=== PATIENT | female | born 1960 | race Caucasian/White ===

== ENCOUNTER → 2017-01-25 | Outpatient (REF) ==
[~2017-01-25] MED LIST: ALLOPURINOL300 MG PO; AMITRIPTYLINE H10 M1 PO; ASPIRIN 81M81 MG/TA2 PO; ASPIRIN E.C. 8181 MG PO; BACTRIM DS 8001 TAB PO; COLCRYS0.6 MG PO; DOXYCYCLINE 10100 MG PO; DUO-KAPS1 CAP PO; ESTRACE2 MG PO; FORTAMET1000 MG PO; GLUCOPHAGE1000 MG PO; GLUCOTROL10 MG PO; HCTZ; LEVAQUIN 5500 MG/TA1 PO; LOPRESSOR100 MG PO; MELATONIN5 M1 PO; NORCO 325 MG-51 TAB PO; NORCO 325 MG-7.1 TAB PO; NORVASC 5MG5 MG/TAB PO; PHENERGAN 25 TA25 MG PO; ZESTRIL40 MG PO; ZYLOPRIM 300MG300 MG PO
== END ==
LOC: ZLAB.WCH 18:02
DX: Z01.89 Encounter for other specified special examinations (principal)

== ENCOUNTER → 2018-01-23 | Outpatient (REF) | LOC: ZLAB.WCH 18:22 | DX: Z01.89 Encounter for other specified special examinations (principal) ==

== ENCOUNTER → 2018-01-24 | Outpatient (REF) | payer SELFPAY | LOC: ZLAB.STJ 08:34 → ZLAB.WCH 08:34 | DX: Z01.89 Encounter for other specified special examinations (principal) ==

== ENCOUNTER → 2018-02-14 | Outpatient (REF) | LOC: ZLAB.WCH 18:17 | DX: Z01.89 Encounter for other specified special examinations (principal) ==

== ENCOUNTER 2019-08-10 15:50 | Inpatient (IN) | payer BC ==
[~2019-08-10] VITALS: Ht 175.3 cm; Wt 96.9 kg
[2019-08-10] VITALS (337 sets, daily range): BP systolic 133–146; BP diastolic 68–81; PULSE 84–90; TEMP 98–98.5; O2SAT 80–100
[2019-08-10] MEDS ORDERED: MOBIC 7.5MG7.5 MG PO (16:18)
--- NOTE | 2019-08-10 16:30 | NUR ---
Pt arrived to room via cart with EMS staff, able to transfer over to bed independently by scooting, did get short of breath. Resting in bed, VSS. Oriented to room and place. Called Dr. Atkins and notified of arrival, will continue to monitor.
--- NOTE | 2019-08-10 18:28 | NUR ---
Dr. Atkins to see pt, resting quietly in bed, denies needs, will give bedside shift report to nightshift nurse who will resume care.
[2019-08-10 18:53] LABS: MUCOUS Present /lpf; PH 5 (5-8); SQUAMOUS EPITHELIAL 0-2 /hpf; URINE APPEARANCE Hazy; URINE BACTERIA Rare /hpf; URINE BILIRUBIN Negative (NEGATIVE); URINE BLOOD Negative (NEGATIVE); URINE COLOR Yellow; URINE GLUCOSE 1+ (NEGATIVE); URINE KETONE Trace (NEGATIVE); URINE LEUKOCYTE ESTERASE 1+ (NEGATIVE); URINE NITRATE Negative (NEGATIVE); URINE PROTEIN(semi-quant) Negative (NEGATIVE); URINE RBC 0-2 /hpf; URINE UROBILINOGEN Negative (NEGATIVE)
[2019-08-10] MEDS ORDERED: LANTUS100 U/ML SQ (19:18)
[2019-08-10 19:44] LABS: COLLECTION METHOD CLEAN CATCH
--- NOTE | 2019-08-10 20:00 | NUR ---
COMPLAINS OF FULLNESS FEELING UPPER ABDOMIN QUADRANTS, AND RIGHT FOOT PAIN, ALSO FRONTAL HEADACHE, STATES "OH THEIR FINE" WILL CONTINUE TO EVALUATE
[2019-08-11] VITALS (758 sets, daily range): BP systolic 109–154; BP diastolic 45–98; PULSE 76–94; TEMP 97.9–99.6; O2SAT 65–100
[2019-08-11 05:38] LABS: BASO # 0.1 (0.0-0.2); BASO % 0.5 % (0.0-2.0); EOS # 0.3 (0.0-0.7); EOS % 2.6 % (0-4.0); GRAN # 6.2 (1.4-6.5); GRAN % 62.2 % (42.2-75.2); HEMOGLOBIN 11.3 g/dl (12.5-16.0); LYMPH # 2.5 (1.2-3.4); LYMPH % 24.7 % (20.0-51.0); MEAN CELL VOLUME 89 fl (80.0-100.0); MEAN CORPUSCULAR HEMOGLOBIN 28 pg (27.0-31.0); MEAN CORPUSCULAR HGB CONC 32 g/dl (33.0-37.0); MEAN PLATELET VOLUME 9.7 fl (7.4-10.4); MONO % 9.6 % (1.7-9.3); PLATELET COUNT 346 K/mm3 (130-400); REDCELL DISTRIBUTION WIDTH-CV 12.6 % (11.5-14.5)
[2019-08-11 05:41] LABS: HEMATOCRIT 35.4 % (37.0-47.0)
[2019-08-11 05:44] LABS: ALBUMIN 3.5 gm/dL (3.5-5.0); BILIRUBIN,TOTAL 0.5 mg/dL (0.0-1.0); CALCIUM 8.9 mg/dL (8.4-10.2); CREATININE, serum 0.99 (0.52-1.25); TOTAL PROTEIN 6.7 gm/dL (6.4-8.2)
--- NOTE | 2019-08-11 07:30 | NUR ---
Bedside shift report received from JOCELINE Romeo. Patient is sleeping, but easily aroused. Full assessment completed. Vital signs stable. Bed in lowest position, side rails up x2, call light and personal items within reach. Patient has no complaints or concerns at this time.
--- NOTE | 2019-08-11 19:24 | NUR ---
Bedside shift report given to JOCELINE Romeo and care handed over at this time.
[2019-08-12] VITALS (24 sets, daily range): BP systolic 124–175; BP diastolic 59–89; PULSE 77–93; TEMP 98–99.1; O2SAT 68–100
[2019-08-12 05:06] LABS: BASO # 0.1 (0.0-0.2); BASO % 0.6 % (0.0-2.0); EOS # 0.2 (0.0-0.7); EOS % 2.3 % (0-4.0); GRAN # 6.1 (1.4-6.5); GRAN % 63.6 % (42.2-75.2); LYMPH # 2.1 (1.2-3.4); LYMPH % 22.1 % (20.0-51.0); MEAN CELL VOLUME 87 fl (80.0-100.0); MEAN CORPUSCULAR HEMOGLOBIN 28 pg (27.0-31.0); MEAN CORPUSCULAR HGB CONC 32 g/dl (33.0-37.0); MEAN PLATELET VOLUME 9.7 fl (7.4-10.4); MONO # 1.1 (0.1-0.6); PLATELET COUNT 326 K/mm3 (130-400); RED BLOOD COUNT 3.96 M/mm3 (4.10-5.30); REDCELL DISTRIBUTION WIDTH-CV 12.5 % (11.5-14.5)
[2019-08-12 05:10] LABS: HEMATOCRIT 34.4 % (37.0-47.0)
[2019-08-12 05:14] LABS: CALCIUM 8.8 mg/dL (8.4-10.2); CREATININE, serum 0.79 (0.52-1.25); POTASSIUM 4.3 mmol/L (3.4-5.0)
--- NOTE | 2019-08-12 07:15 | NUR ---
Bedside shift report received from JOCELINE Romeo. Patient is sleeping, but easily aroused. Full assessment completed. Vital signs stable. Bed in lowest position. Side rails up x2. Call light and personal items within reach. Patient has no complaints or concerns at this time.
--- NOTE | 2019-08-12 10:27 | NUR ---
SW contacted the patient to discuss discharge plan. The patient lives in [place] with her , Naseem (ph#[phone]), and two grandchildren. She reports independence with ADLs and does not have any DME. The patient's PCP is Dr. Luanne Medel and she receives her medications at [facility]. She reports no difficulties obtaining her meds. The patient does not have advanced directives. The patient plans to return back home with her family upon discharge. The patient is pending results for COVID-19. SW to continue to follow as needed.
--- NOTE | 2019-08-12 19:07 | NUR ---
Shift report given to JOCELINE Valles on medical floor at this time.
--- NOTE | 2019-08-12 19:50 | NUR ---
Patient arrived in room at this time. Provided with call light. Denies needs at this time.
--- NOTE | 2019-08-12 20:02 | NUR ---
Patient transferred to medical bed 308 via wheelchair by RETAIL STORE ASSISTANT with no complications. Call light and personal items within reach. Bed in lowest position. Patient sitting in recliner. RN notified of arrival and care handed over to [place] at this time.
--- NOTE | 2019-08-12 21:00 | NUR ---
Sitting in recliner. Assessment complete. Lungs clear. Heart sounds normal. Bowels active x4. Pulses present. Bilateral lower leg edema +1. Patient had partial right foot amputation with a large blister and hemotoma to inferior portion of foot. Blister with serosanguinous drainage-dressing applied. Denies any pain at this time. Orientated to medical floor. Took shower this evening. Denies needs at this time.
--- NOTE | 2019-08-12 22:34 | NUR ---
Provided patient with PRN tylenol at this time. Drainage from right foot blister. Dressing applied. Denies needs at this time. Call light in reach.
[2019-08-13] VITALS (7 sets, daily range): BP systolic 146–160; BP diastolic 51–90; PULSE 74–84; TEMP 97.7–98.6
--- NOTE | 2019-08-13 03:44 | NUR ---
Patient provided with warm blanket. Denies other needs. Call light in reach.
--- NOTE | 2019-08-13 05:54 | NUR ---
Patient required x1 dose of tylenol for pain control. Otherwise uneventful night. Patient continues with dressing to right foot due to drainage. Resting in bed this AM. Call light in reach.
--- NOTE | 2019-08-13 07:25 | NUR ---
Report given to JOCELINE Gordillo
--- NOTE | 2019-08-13 07:46 | NUR ---
Dr Zamudio here to see patient.
[2019-08-13 08:05] LABS: BASO # 0.1 (0.0-0.2); BASO % 0.7 % (0.0-2.0); EOS # 0.4 (0.0-0.7); EOS % 3.7 % (0-4.0); GRAN # 5.7 (1.4-6.5); GRAN % 56.9 % (42.2-75.2); HEMOGLOBIN 11.1 g/dl (12.5-16.0); LYMPH # 2.6 (1.2-3.4); LYMPH % 26.4 % (20.0-51.0); MEAN CELL VOLUME 87 fl (80.0-100.0); MEAN CORPUSCULAR HEMOGLOBIN 28 pg (27.0-31.0); MEAN CORPUSCULAR HGB CONC 33 g/dl (33.0-37.0); MEAN PLATELET VOLUME 9.7 fl (7.4-10.4); MONO # 1.1 (0.1-0.6); MONO % 11.4 % (1.7-9.3); PLATELET COUNT 389 K/mm3 (130-400); RED BLOOD COUNT 3.95 M/mm3 (4.10-5.30); REDCELL DISTRIBUTION WIDTH-CV 12.5 % (11.5-14.5)
[2019-08-13 08:07] LABS: HEMATOCRIT 34.2 % (37.0-47.0)
[2019-08-13 08:38] LABS: CREATININE, serum 0.69 (0.52-1.25); POTASSIUM 4.2 mmol/L (3.4-5.0)
[2019-08-13 08:52] LABS: C-REACTIVE PROTEIN 17.3 mg/dL (0.0-0.9)
--- NOTE | 2019-08-13 10:41 | NUR ---
PATIENT IS ALERT AND ORIENTED. DENIES ANY PAIN. COMPLAIN OF PERIODIC NAUSEA. HEART SOUND IS NORMAL, BREATH SOUND IS CLEAR. STEPHANIE URINE COLOR. BELOW RIGHT ANKLE AMPUTATION.
--- NOTE | 2019-08-13 10:52 | NUR ---
Patient was seen by Dr. Brooks. Patient was tearful this morning following being told that she would need a Below the knee amputation. She stated that she would try to process the information. Will continue to monitor.
--- NOTE | 2019-08-13 11:15 | NUR ---
First visit from the curing pickling packer. No needs right now.
--- NOTE | 2019-08-13 11:21 | NUR ---
Patient reported that her is working and that she will update him on Dr. recommendations this evening.
--- NOTE | 2019-08-13 16:11 | NUR ---
Claims Investigator received COVID19 testing results from MADIHA ChamorroCM at [facility] and placed results on patient's chart. SW notified MELINDA Silva.
--- NOTE | 2019-08-13 18:48 | NUR ---
Patient resting in recliner, call light in reach with Vancomycin infusing to IV at this time. Patient's dressing to right foot came off when she ambulated to the toilet. This nurse cleaned wound, patted dry and applied gauze and secured with danielle wrap.
--- NOTE | 2019-08-13 21:00 | NUR ---
Pt. sitting up in chair at this time. Pt. is A&OX3 assessment complete. INT to lt. ac patent. Pt. denies pain at this time. Dressing to rt. foot CDI. Pt. denies further needs, call light within reach.
[2019-08-14 03:57] VITALS: BP 127/62; PULSE 79; TEMP 97.7
[2019-08-14 07:32] VITALS: BP 152/74; PULSE 76; TEMP 97.7
[2019-08-14 11:50] VITALS: BP 153/79; PULSE 80; TEMP 98.9
--- NOTE | 2019-08-14 12:02 | NUR ---
The patient will be needing IV antibiotics for six weeks. ASHLEY contacted Nurse JUAN C Triplett to ask about prior auth. It is needed and she will contact the patient's insurance. Will continue to monitor.
[2019-08-14 16:45] VITALS: BP 162/57; PULSE 74; TEMP 98.3
--- NOTE | 2019-08-14 17:05 | NUR ---
The patient decided to use [facility] and a IV infusion company for her IV antibiotic needs. ASHLEY met with the patient with [employer]'s list of home health agencies. The patient chose [facility]. ASHLEY faxed a referral to Robert at [facility]. ASHLEY faxed referrals to [facility] for the IV antibiotics. Will continue to follow.
[2019-08-14 17:56] VITALS: BP 157/82; PULSE 78; TEMP 97.6
[2019-08-14 19:24] VITALS: BP 154/73; PULSE 84; TEMP 97.4
--- NOTE | 2019-08-14 20:50 | NUR ---
Alert and oriented x4. Verbal. Indepdent in room. Carol any pain or discomfort at this time. IV vanc infusion completed when pt c/o pain to LAD IV. Infiltration observed, cool to touch around IV site. LAC IC dc'd. Pt to shower then will attempt to start another IV. Bottom of rt foot with x2 ulcer with purulent drainage. Dressing removed at this time. Will redress after shower. Needs met at this time. call light within reach.
--- NOTE | 2019-08-14 23:04 | NUR ---
20G IV started to RAC, tolerated well. Meds administered. Ice pack given to apply to infiltrated LAC. Bottom of rt foot ulcer drained moderate amount of purulent drainage. Telfa, foam pad and danielle wrap dressing applied to Rt foot. Needs met at this time. call light within reach.
[2019-08-15 00:50] VITALS: BP 152/65; PULSE 86; TEMP 97.4
[2019-08-15 05:01] VITALS: BP 155/73; PULSE 76; TEMP 97.8
--- NOTE | 2019-08-15 05:38 | NUR ---
Pt made no complaints during this shift. Meds adminsitered. Needs met. Call light within reach.
[2019-08-15 06:10] LABS: BASO # 0.1 (0.0-0.2); BASO % 0.9 % (0.0-2.0); EOS # 0.4 (0.0-0.7); EOS % 3.7 % (0-4.0); GRAN # 4.8 (1.4-6.5); GRAN % 48.6 % (42.2-75.2); HEMOGLOBIN 10.9 g/dl (12.5-16.0); LYMPH # 3.4 (1.2-3.4); LYMPH % 34.3 % (20.0-51.0); MEAN CELL VOLUME 87 fl (80.0-100.0); MEAN CORPUSCULAR HEMOGLOBIN 28 pg (27.0-31.0); MEAN CORPUSCULAR HGB CONC 32 g/dl (33.0-37.0); MEAN PLATELET VOLUME 9.3 fl (7.4-10.4); MONO % 10.1 % (1.7-9.3); PLATELET COUNT 443 K/mm3 (130-400); REDCELL DISTRIBUTION WIDTH-CV 12.5 % (11.5-14.5)
[2019-08-15 06:14] LABS: HEMATOCRIT 34.1 % (37.0-47.0)
[2019-08-15 06:29] LABS: CALCIUM 9.1 mg/dL (8.4-10.2); CREATININE, serum 0.86 (0.52-1.25)
--- NOTE | 2019-08-15 07:20 | NUR ---
Report given to JOCELINE Peterson.
--- NOTE | 2019-08-15 08:05 | NUR ---
Patient resting in bed. A&Ox4. Denies pain and discomfort. IV CDI. VSS. Right foot covered in dressing. No further needs expressed from patient. Call light within reach
[2019-08-15 08:34] VITALS: BP 128/49; PULSE 77; TEMP 98.1
[2019-08-15] MEDS ORDERED: CIPROFLOXA400 MG/202 IV (09:06)
[2019-08-15] MEDS ORDERED: VANCO 1.51.5 GM/250 IV (09:06)
[2019-08-15] MEDS ORDERED: LOPRESSOR 550 MG/TAB PO (09:07)
[2019-08-15] MEDS ORDERED: ZESTRIL 20MG TA20 MG PO (09:07)
[2019-08-15] MEDS ORDERED: BD POSIFLUSH SF10 ML IV (09:09)
[2019-08-15] MEDS ORDERED: LEVEMIR FLEX100 U/ML SQ (13:47)
[2019-08-15] MEDS ORDERED: NOVOLOG FLEX100 U/ML SQ (13:48)
[2019-08-15] MEDS ORDERED: THE MEDICINE SH1 DE3 MC (13:49)
--- NOTE | 2019-08-15 16:32 | NUR ---
The patient is to discharge today, 08/14 home with [facility] and will receive her IV antibiotics from [facility]. SW faxed discharge orders. There are no additional needs at this time.
--- NOTE | 2019-08-15 18:36 | NUR ---
PRINTED DC INSTRUCTIONS REVIEWED WITH PATIENT. 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 DENIES NEEDING DETAILED REVIEW. ACKNOWLEDGED HOME HEALTH, IV ANTIBIOTICS, PICC LINE, NEW AND CHANGED MEDICATIONS, AND F/U APPOINTMENTS WITH LAB. DENIES NEEDS OR CONCERNS AFTER REVIEW. RIGHT HEEL WOUND DRESSING CHANGED AT THIS TIME PER PATIENT REQUEST.
--- NOTE | 2019-08-15 18:59 | NUR ---
PATIENT DC TO HOME WITH TEAM TRUCK DRIVER @ 1900. LEFT UNIT VIA WC ACCOMPANIED BY PCT.
== END 2019-08-15 19:00 | disposition home health service (06) | DRG 565 ==
LOC: MEDICAL 15:50 → IMCU 15:50 → MEDICAL 08-12 19:49 → JCC 08-15 15:30
PROVIDERS: Nurse Practitioner Family; Physician Assistant
PROC: 02HV33Z Insertion of Infusion Device into Superior Vena Cava, Percutaneous Approach (ICD-10-PCS; principal; 2019-08-15)
DX: T87.43 Infection of amputation stump, right lower extremity (principal); M86.8X7 Other osteomyelitis, ankle and foot; L03.115 Cellulitis of right lower limb; E11.42 Type 2 diabetes mellitus with diabetic polyneuropathy; I10 Essential (primary) hypertension; E78.5 Hyperlipidemia, unspecified; E11.21 Type 2 diabetes mellitus with diabetic nephropathy; E11.65 Type 2 diabetes mellitus with hyperglycemia; E11.621 Type 2 diabetes mellitus with foot ulcer; Z79.4 Long term (current) use of insulin; Z03.818 Encounter for observation for suspected exposure to other biological agents ruled out; Z87.891 Personal history of nicotine dependence; Z88.0 Allergy status to penicillin
CPT/HCPCS: 99223-AI; 99232-AI; 99239; A9585; C1751; C1892; J0744; J1650; J1815; J2185; J3370; J7050

== ENCOUNTER 2019-08-29 11:50 | Outpatient (RCR) | payer BC ==
[~2019-08-29 11:50] MED LIST changes: +BD POSIFLUSH SF10 ML IV; +CIPROFLOXA400 MG/202 IV; +LANTUS100 U/ML SQ; +LEVEMIR FLEX100 U/ML SQ; +LOPRESSOR 550 MG/TAB PO; +MOBIC 7.5MG7.5 MG PO; +NOVOLOG FLEX100 U/ML SQ; +THE MEDICINE SH1 DE3 MC; +VANCO 1.51.5 GM/250 IV; +ZESTRIL 20MG TA20 MG PO
--- NOTE | 2019-08-29 12:10 | NUR ---
patient presented to the express unit for IV antibiotic administration. Patient has a left arm PICC which is intact. PICC was present. Applied new catheter after scrubbing both rubs with to alcohol swabs. Both ports flushed with 10 mL normal saline with good blood return noted. Dressing intact with gauze present. With sterile technique left upper arm PICC dressing change done with insertion site cleansed with ChloraPrep 1, chlorhexidine impregnated disc applied, skin prep, StatLock, and Tegaderm applied. No other signs or symptoms of IV complications noted. No concerns voiced. Instructed patient to inform [facility] of need for on the end of her PICC line. also, she will instruct [facility] of the need for a chlorhexidine impregnated disc.
[2019-08-29 12:16] VITALS: BP 140/62; PULSE 70; TEMP 98.3
--- NOTE | 2019-08-29 14:00 | NUR ---
Contacted Wendy at [facility] and explained no caps on PICC, gauze on site, and no disk present. explained concern for central line infection. patient was instructed to monitor for fever, chills, and malaise and report to physician. order set faxed to agency. Advised may contact me at anytime for comments, questions, and/or concerns.
== END 2019-08-29 13:41 | disposition home or self-care (01) ==
LOC: EUO 11:50
DX: E11.9 Type 2 diabetes mellitus without complications (principal); L08.9 Local infection of the skin and subcutaneous tissue, unspecified; M86.9 Osteomyelitis, unspecified
CPT/HCPCS: J0696

== ENCOUNTER 2019-09-11 16:10 | Outpatient (CLI) | payer BC ==
[~2019-09-11] VITALS: Ht 175.3 cm; Wt 101.4 kg
[2019-09-11 16:27] VITALS: BP 145/82; PULSE 59; TEMP 97.9
== END 2019-09-11 17:00 | disposition home or self-care (01) ==
LOC: EUO 16:10
DX: M86.9 Osteomyelitis, unspecified (principal); L03.115 Cellulitis of right lower limb

== ENCOUNTER 2019-10-03 15:07 | Outpatient (CLI) | payer BC ==
[~2019-10-03] VITALS: Ht 175.3 cm; Wt 102.7 kg
[2019-10-03 15:32] VITALS: BP 164/84; PULSE 75; TEMP 98.1
== END 2019-10-03 15:33 | disposition home or self-care (01) ==
LOC: EUO 15:07
DX: E11.610 Type 2 diabetes mellitus with diabetic neuropathic arthropathy (principal); E11.621 Type 2 diabetes mellitus with foot ulcer; E11.40 Type 2 diabetes mellitus with diabetic neuropathy, unspecified

== ENCOUNTER 2020-02-25 20:28 | Emergency (ER) | payer BC ==
[~2020-02-25] VITALS: Ht 175.3 cm; Wt 104.5 kg
[2020-02-25 20:43] VITALS: TEMP 97.1
[2020-02-25 22:41] LABS: BASO # 0.1 (0.0-0.2); BASO % 0.5 % (0.0-2.0); EOS # 0.2 (0.0-0.7); EOS % 0.9 % (0-4.0); GRAN # 13.8 (1.4-6.5); GRAN % 79.2 % (42.2-75.2); HEMATOCRIT 35.3 % (37.0-47.0); HEMOGLOBIN 11.2 g/dl (12.5-16.0); LYMPH # 1.8 (1.2-3.4); MEAN CELL VOLUME 86 fl (80.0-100.0); MEAN CORPUSCULAR HEMOGLOBIN 27 pg (27.0-31.0); MEAN CORPUSCULAR HGB CONC 32 g/dl (33.0-37.0); MEAN PLATELET VOLUME 9.4 fl (7.4-10.4); MONO # 1.5 (0.1-0.6); MONO % 8.6 % (1.7-9.3); PLATELET COUNT 452 K/mm3 (130-400); RED BLOOD COUNT 4.12 M/mm3 (4.10-5.30); REDCELL DISTRIBUTION WIDTH-CV 14.4 % (11.5-14.5)
[2020-02-25 22:53] LABS: CALCIUM 9.3 mg/dL (8.4-10.2); CREATININE, serum 1.22 (0.52-1.25); POTASSIUM 4.8 mmol/L (3.4-5.0); TOTAL PROTEIN 7.8 gm/dL (6.4-8.2)
[2020-02-25 23:04] LABS: C-REACTIVE PROTEIN 14.2 mg/dL (0.0-0.9)
[2020-02-26 00:37] LABS: COLLECTION METHOD CLEAN CATCH
[2020-02-26 00:56] LABS: PH 5 (5-8); SQUAMOUS EPITHELIAL 0-2 /hpf; URINE APPEARANCE Cloudy; URINE BACTERIA Moderate /hpf; URINE BILIRUBIN Negative (NEGATIVE); URINE BLOOD Negative (NEGATIVE); URINE COLOR Yellow; URINE GLUCOSE 2+ (NEGATIVE); URINE KETONE Trace (NEGATIVE); URINE LEUKOCYTE ESTERASE 3+ (NEGATIVE); URINE NITRATE Positive (NEGATIVE); URINE PROTEIN(semi-quant) Negative (NEGATIVE); URINE UROBILINOGEN Negative (NEGATIVE)
[2020-02-26] MEDS ORDERED: ZOFRAN ODT4 MG PO (02:33)
[2020-02-26] MEDS ORDERED: OMNICEF 300MG300 MG PO (02:33)
[2020-02-26 03:55] VITALS: BP 135/74; PULSE 89
== END 2020-02-26 03:55 | disposition home or self-care (01) ==
LOC: COL.ER 20:28
PROVIDERS: Family Medicine
DX: N12 Tubulo-interstitial nephritis, not specified as acute or chronic (principal); N39.0 Urinary tract infection, site not specified; I10 Essential (primary) hypertension; Z90.710 Acquired absence of both cervix and uterus; Z90.49 Acquired absence of other specified parts of digestive tract; Z88.0 Allergy status to penicillin; Z88.5 Allergy status to narcotic agent; Z79.82 Long term (current) use of aspirin
CPT/HCPCS: J0696; J2405; J2550; J3010; J7030; J7120; Q9967

== ENCOUNTER → 2020-07-15 | Outpatient (CLI) | payer BC ==
[~2020-07-15] MED LIST changes: +OMNICEF 300MG300 MG PO; +ZOFRAN ODT4 MG PO
== END ==
LOC: ZCOL.LAB 17:43
DX: T14.90XA Injury, unspecified, initial encounter (principal)

== ENCOUNTER → 2020-08-13 | Outpatient (REF) | payer SELFPAY | LOC: ZCOL.LAB 17:50 | DX: E13.621 Other specified diabetes mellitus with foot ulcer (principal) ==

== ENCOUNTER → 2020-09-07 | Outpatient (CLI) | payer OTHER | LOC: COL.RAD 09:25 | DX: Z02.71 Encounter for disability determination (principal); M17.11 Unilateral primary osteoarthritis, right knee; M47.816 Spondylosis without myelopathy or radiculopathy, lumbar region ==

== ENCOUNTER → 2020-12-02 | Outpatient (CLI) | payer BC ==
[~2020-12-02] MED LIST changes: +AMOXICILLIN/CLA1 TA1 PO; +PRINIVIL20 MG PO; +ZOFRAN 4MG T4 MG/TAB PO
== END ==
LOC: ZCOL.LAB 16:54
DX: T14.90XA Injury, unspecified, initial encounter (principal)

== ENCOUNTER 2021-03-17 19:42 | Inpatient (IN) | payer BC ==
[~2021-03-17] VITALS: Ht 175.3 cm; Wt 110.0 kg
[~2021-03-17 19:42] MED LIST changes: -AMOXICILLIN/CLA1 TA1 PO; -PRINIVIL20 MG PO; -ZOFRAN 4MG T4 MG/TAB PO
[2021-03-17 20:20] LABS: BASO # 0.1 K/mm3 (0.0-0.2); EOS # 0.2 K/mm3 (0.0-0.7); EOS % 1.8 % (0-4.0); GRAN # 5.4 K/mm3 (1.4-6.5); GRAN % 58.6 % (42.2-75.2); LYMPH # 2.8 K/mm3 (1.2-3.4); LYMPH % 30.1 % (20.0-51.0); MEAN CELL VOLUME 85 fl (80.0-100.0); MEAN CORPUSCULAR HGB CONC 32 g/dl (33.0-37.0); MEAN PLATELET VOLUME 10.5 fl (7.4-10.4); MONO # 0.7 K/mm3 (0.1-0.6); MONO % 7.8 % (1.7-9.3); PLATELET COUNT 355 K/mm3 (130-400); REDCELL DISTRIBUTION WIDTH-CV 16.5 % (11.5-14.5)
[2021-03-17 20:22] LABS: HEMATOCRIT 22.1 % (37.0-47.0); HEMOGLOBIN 7.1 g/dl (12.5-16.0); MEAN CORPUSCULAR HEMOGLOBIN 27 pg (27.0-31.0)
[2021-03-17 20:36] LABS: ACETONE,SERUM NEGATIVE
[2021-03-17 20:41] LABS: ALANINE AMINOTRANSFERASE 7 U/L (0-55); ALBUMIN 3.3 gm/dL (3.4-4.8); ALKALINE PHOSPHATASE 94 U/L (40-150); ANION GAP 13 mmol/L (7-16); AST,SGOT 15 U/L (5-34); BILIRUBIN,TOTAL 0.6 mg/dL (0.2-1.2); BLOOD UREA NITROGEN 35 mg/dL (10-20); CALCIUM 8.8 mg/dL (8.4-10.2); CARBON DIOXIDE 20 mmol/L (23-31); CHLORIDE 96 mmol/L (98-107); CREATININE, serum 1.42 mg/dL (0.57-1.11); POTASSIUM 5.1 mmol/L (3.5-4.5); SODIUM 129 mmol/L (136-145); TOTAL PROTEIN 6.5 gm/dL (6.2-8.1)
[2021-03-17 20:46] LABS: GLUCOSE 497 mg/dL (70-99)
[2021-03-17] MEDS ORDERED: AMOXICILLIN/CLA1 TA1 PO (22:59)
[2021-03-17] MEDS ORDERED: LEVEMIR FLEX100 U/ML SQ (23:00)
[2021-03-17] MEDS ORDERED: NOVOLOG FLEX100 U/ML SQ (23:01)
[2021-03-17] MEDS ORDERED: ASPIRIN 81M81 MG/TA2 PO (23:02)
[2021-03-17] MEDS ORDERED: ZOFRAN 4MG T4 MG/TAB PO (23:02)
[2021-03-17] MEDS ORDERED: PRINIVIL20 MG PO (23:02)
[2021-03-17] MEDS ORDERED: GLUCOTROL10 MG PO ×2 (23:03→23:05)
[2021-03-17] MEDS ORDERED: GLUCOPHAGE1000 MG PO (23:03)
[2021-03-17] MEDS ORDERED: AMITRIPTYLINE H10 M1 PO (23:04)
[2021-03-17] MEDS ORDERED: LOPRESSOR 550 MG/TAB PO (23:04)
[2021-03-17] MEDS ORDERED: MOBIC 7.5MG7.5 MG PO (23:05)
[2021-03-17] MEDS ORDERED: ZYLOPRIM 300MG300 MG PO (23:06)
[2021-03-17] MEDS ORDERED: NORVASC 5MG5 MG/TAB PO (23:06)
[2021-03-17 23:39] LABS: COLLECTION METHOD CLEAN CATCH
[2021-03-17 23:44] LABS: HEMATOCRIT 23.1 % (37.0-47.0); HEMOGLOBIN 7.5 g/dl (12.5-16.0)
[2021-03-17 23:47] LABS: PH 5 (5-8); SQUAMOUS EPITHELIAL 0-2 /hpf (0-10); URINE APPEARANCE Clear (CLEAR/HAZY); URINE BACTERIA None Seen (NONE SEEN); URINE BILIRUBIN Negative (NEGATIVE); URINE BLOOD Negative (NEGATIVE); URINE COLOR Straw (YELLOW); URINE GLUCOSE 3+ (NEGATIVE); URINE KETONE Trace (NEGATIVE); URINE LEUKOCYTE ESTERASE Negative (NEGATIVE); URINE NITRATE Negative (NEGATIVE); URINE PROTEIN(semi-quant) Negative (NEGATIVE); URINE RBC 0-2 /hpf (0-2); URINE UROBILINOGEN Negative (NEGATIVE)
[2021-03-18] VITALS (7 sets, daily range): BP systolic 109–163; BP diastolic 53–88; PULSE 69–72; TEMP 97.4–98
[2021-03-18 05:37] LABS: BASO # 0.1 K/mm3 (0.0-0.2); BASO % 0.8 % (0.0-2.0); EOS # 0.2 K/mm3 (0.0-0.7); GRAN # 5.1 K/mm3 (1.4-6.5); GRAN % 60.4 % (42.2-75.2); LYMPH # 2.4 K/mm3 (1.2-3.4); LYMPH % 28.7 % (20.0-51.0); MEAN CELL VOLUME 88 fl (80.0-100.0); MEAN CORPUSCULAR HGB CONC 31 g/dl (33.0-37.0); MEAN PLATELET VOLUME 10.2 fl (7.4-10.4); MONO # 0.6 K/mm3 (0.1-0.6); MONO % 7.4 % (1.7-9.3); PLATELET COUNT 351 K/mm3 (130-400); REDCELL DISTRIBUTION WIDTH-CV 16.7 % (11.5-14.5)
[2021-03-18 05:53] LABS: CREATININE, serum 1.14 mg/dL (0.57-1.11); POTASSIUM 4.2 mmol/L (3.5-4.5)
[2021-03-18 06:02] LABS: HEMATOCRIT 19.4 % (37.0-47.0); HEMOGLOBIN 6.1 g/dl (12.5-16.0); MEAN CORPUSCULAR HEMOGLOBIN 28 pg (27.0-31.0)
[2021-03-18 09:52] LABS: PROTHROMBIN TIME 11.4 SECONDS (9.7-12.8)
--- NOTE | 2021-03-18 11:36 | NUR ---
PT ADMITED TO FLOOR. NO COMPLAINTS OF PAIN OR DYSPNEA. NO SIGNS OF DISTRESS. BLOOD TRANSFUSION COMPLETE. NO REACTIONS NOTED. CALL LIGHT WITHIN REACH
[2021-03-18 12:26] LABS: HEMATOCRIT 25.3 % (37.0-47.0); HEMOGLOBIN 8.2 g/dl (12.5-16.0)
[2021-03-18 16:33] LABS: HEMATOCRIT 24.7 % (37.0-47.0); HEMOGLOBIN 7.8 g/dl (12.5-16.0)
--- NOTE | 2021-03-18 19:00 | NUR ---
RECEIVED CHANGE OF SHIFT REPORT FROM DAY SHIFT NURSE.
--- NOTE | 2021-03-18 20:01 | NUR ---
DENIES CHEST PAIN/SOA/NAUSEA AT THIS TIME. DENIES NUMBNESS/TINGLING TO EXTREMITIES. REPORTS UP TO BATHROOM WITH WALKER WITH ASSIST X1. IV FLUIDS INFUSING WITH NO PROBLEMS AT THIS TIME.
[2021-03-18 20:21] LABS: HEMATOCRIT 36.6 % (37.0-47.0); HEMOGLOBIN 11.7 g/dl (12.5-16.0)
[2021-03-18 23:54] LABS: HEMATOCRIT 26.3 % (37.0-47.0)
[2021-03-18 23:55] LABS: HEMOGLOBIN 8.1 g/dl (12.5-16.0)
[2021-03-19 03:46] VITALS: BP 147/67; PULSE 80; TEMP 97.6
--- NOTE | 2021-03-19 06:43 | NUR ---
CHANGE OF SHIFT REPORT GIVEN TO DAY SHIFT NURSE, RAINA CAR.
[2021-03-19 07:31] LABS: MEAN CELL VOLUME 87 fl (80.0-100.0); MEAN CORPUSCULAR HGB CONC 32 g/dl (33.0-37.0); MEAN PLATELET VOLUME 10.1 fl (7.4-10.4); PLATELET COUNT 369 K/mm3 (130-400); RED BLOOD COUNT 2.69 M/mm3 (4.10-5.30); REDCELL DISTRIBUTION WIDTH-CV 17.2 % (11.5-14.5)
[2021-03-19 07:43] LABS: HEMATOCRIT 23.5 % (37.0-47.0); HEMOGLOBIN 7.4 g/dl (12.5-16.0); MEAN CORPUSCULAR HEMOGLOBIN 28 pg (27.0-31.0)
[2021-03-19 07:53] VITALS: BP 143/55; PULSE 76; TEMP 97.8
[2021-03-19 07:55] LABS: CALCIUM 8.9 mg/dL (8.4-10.2); CREATININE, serum 0.83 mg/dL (0.57-1.11); POTASSIUM 3.9 mmol/L (3.5-4.5)
--- NOTE | 2021-03-19 09:24 | NUR ---
PT ASSESSED. NO COMPLAINTS OF PAIN OR DYSPNEA. NO SIGNS OFR SYMPTOMS OF DISTRESS. CALL LIGHT WITHIN REACH
[2021-03-19 12:43] VITALS: BP 157/85; PULSE 84; TEMP 97.5
--- NOTE | 2021-03-19 15:27 | NUR ---
wall worker met with patient to discuss discharge plan. Patient states that she lives at home with her Naseem ([phone]) in [place]. Patient reports that she is independent with her activities of daily living and that she does not utilize any DME to assist with mobility. Patient reports no oxygen needs. PCP is Dr. Medel and she utilizes [facility] with no cost difficulty. Patient states that she does not have a DPOA-HC established but acknowledges that her and her need to talk about it. Patient declined filling form out on this visit but is accpting to taking one home. Education provided and the patient verbalizes her understanding.Patient is planning on returning home with her . Discharge plan: Home with spouse.
[2021-03-19 17:25] VITALS: BP 141/66; PULSE 74; TEMP 98.4
[2021-03-19 18:40] LABS: HEMATOCRIT 24.3 % (37.0-47.0); HEMOGLOBIN 7.6 g/dl (12.5-16.0)
--- NOTE | 2021-03-19 19:15 | NUR ---
Arrived to room 352 via wheelchair from surgical floor. Assessment complete. A&Ox4. Denies pain/nausea/shortness of breath. VS stable. Right AC INT flushes without difficulty. Plan of care discussed for this shift to include meds/clear liquid diet/calling for quesitons/concerns. Verbalizes understanding/denies needs. Call light in reach. Will monitor.
[2021-03-19 21:16] VITALS: BP 151/59; PULSE 82; TEMP 97.9
--- NOTE | 2021-03-19 23:00 | NUR ---
INT to right AC accidently pulled out at this time. Patient is hesitent to have new IV placed-states she is "a very hard stick." This nurse does not see any veins good enough to attempt IV placement. Notified Tape Fastener Machine Operator who attempted to place INT x1 with no success. Currently has no IV meds ordered and patient states should go home in AM. Will report off to dayshift at shift change of no access.
[2021-03-20 00:21] VITALS: BP 147/78; PULSE 66; TEMP 98
[2021-03-20 04:54] VITALS: BP 135/59; PULSE 71; TEMP 98
[2021-03-20 06:23] LABS: BASO % 0.6 % (0.0-2.0); EOS # 0.2 K/mm3 (0.0-0.7); EOS % 2.8 % (0-4.0); GRAN # 3.5 K/mm3 (1.4-6.5); GRAN % 49.8 % (42.2-75.2); LYMPH # 2.7 K/mm3 (1.2-3.4); LYMPH % 37.7 % (20.0-51.0); MEAN CELL VOLUME 85 fl (80.0-100.0); MEAN CORPUSCULAR HGB CONC 32 g/dl (33.0-37.0); MONO # 0.6 K/mm3 (0.1-0.6); MONO % 8.8 % (1.7-9.3); PLATELET COUNT 348 K/mm3 (130-400); RED BLOOD COUNT 2.61 M/mm3 (4.10-5.30)
--- NOTE | 2021-03-20 06:26 | NUR ---
Had an uneventful night. Received tylenol for general body aches. NO IV access as was accidently pulled out by patient and multiple attempts unsuccessful. VS remained stable. Tolerating PO. Stand by assist with walker. Dressing to right foot CDI. Denies current needs. Call light in reach. Will monitor.
[2021-03-20 06:40] LABS: CALCIUM 8.2 mg/dL (8.4-10.2); CREATININE, serum 0.8 mg/dL (0.57-1.11); POTASSIUM 4.1 mmol/L (3.5-4.5)
[2021-03-20 06:47] LABS: HEMATOCRIT 22.3 % (37.0-47.0); HEMOGLOBIN 7.1 g/dl (12.5-16.0); MEAN CORPUSCULAR HEMOGLOBIN 27 pg (27.0-31.0)
[2021-03-20 08:14] VITALS: BP 149/59; PULSE 78; TEMP 97.8
--- NOTE | 2021-03-20 11:53 | NUR ---
PT RESTING IN BED. MORNING MEDICATIONS GIVEN. SHIFT ASSESSMENT COMPLETED. DENIES ANY NEEDS AT THIS TIME. WILL CONTINUE TO MONITOR.
[2021-03-20 12:15] VITALS: BP 144/60; PULSE 69; TEMP 98
[2021-03-20 16:10] VITALS: BP 153/91; PULSE 77; TEMP 98.3
[2021-03-20 17:09] LABS: HEMOGLOBIN 7.4 g/dl (12.5-16.0)
[2021-03-20 17:10] LABS: HEMATOCRIT 23.7 % (37.0-47.0)
--- NOTE | 2021-03-20 18:40 | NUR ---
PT HAD AN UNEVENTFUL DAY. EAGER TO DISCHARGE HOME.
[2021-03-20 20:57] VITALS: BP 126/73; PULSE 96; TEMP 98.3
--- NOTE | 2021-03-20 21:30 | NUR ---
assisted pt with changing of right foot dressing, quarter sized ulceration present on ball of foot, outer edges dry, blackish and crusty, center of wound dark red to pinkish color. pt redressed following her wound care POC
--- NOTE | 2021-03-21 01:05 | NUR ---
Pt c/o nausea, no IV present, Yashira Torres APRN contacted for oral zofran order, 4mg given po after verified by pharmacy. Tylenol given for c/o ELAINE.
[2021-03-21 01:09] VITALS: BP 111/52; PULSE 93; TEMP 98.4
[2021-03-21 04:09] VITALS: BP 149/63; PULSE 78; TEMP 97.7
[2021-03-21 06:36] LABS: MEAN CELL VOLUME 88 fl (80.0-100.0); MEAN CORPUSCULAR HGB CONC 32 g/dl (33.0-37.0); PLATELET COUNT 379 K/mm3 (130-400); RED BLOOD COUNT 2.63 M/mm3 (4.10-5.30)
--- NOTE | 2021-03-21 06:44 | NUR ---
pt on RA, no c/o pain this shift, slept well, turned and checked q2hrs, mckeon patent/secure, low urine output, not taking a lot po. TRIJ intact and secure
--- NOTE | 2021-03-21 06:50 | NUR ---
no further c/o nausea after zofran given orally, tylenol controlling headache, up ad kyler in room. SS given @HS
[2021-03-21 07:11] LABS: CALCIUM 8.8 mg/dL (8.4-10.2); CREATININE, serum 1.1 mg/dL (0.57-1.11); POTASSIUM 4.5 mmol/L (3.5-4.5)
[2021-03-21 07:52] LABS: HEMATOCRIT 23.2 % (37.0-47.0); HEMOGLOBIN 7.3 g/dl (12.5-16.0); MEAN CORPUSCULAR HEMOGLOBIN 28 pg (27.0-31.0)
[2021-03-21 08:22] VITALS: BP 185/75; PULSE 77; TEMP 98.2
--- NOTE | 2021-03-21 09:52 | NUR ---
PT RESTING IN BED. MORNING MEDICATIONS GIVEN. SHIFT ASSESSMENT COMPLETED. PT STATES SHE FEELS LESS WEAK TODAY AND IS EAGER TO GO HOME. WILL CONTINUE TO MONITOR.
[2021-03-21] MEDS ORDERED: PROTONIX 40MG T40 MG PO (10:14)
[2021-03-21] MEDS ORDERED: LEVEMIR100 U/ML SQ (10:15)
[2021-03-21] MEDS ORDERED: INSULIN SYRING1 EA11 SQ (10:16)
[2021-03-21] MEDS ORDERED: INSULIN AS100 UNIT/2 SQ (10:16)
== END 2021-03-21 14:00 | disposition home or self-care (01) | DRG 378 ==
LOC: COL.ER 19:42 → SURG 23:36 → MEDICAL 03-19 19:28
PROVIDERS: Family Medicine; Internal Medicine Gastroenterology; Nurse Practitioner Family; Physician Assistant; ADMIT Internal Medicine
PROC: 30233N1 Transfusion of Nonautologous Red Blood Cells into Peripheral Vein, Percutaneous Approach (ICD-10-PCS; 2021-03-17)
PROC: 0DB78ZX Excision of Stomach, Pylorus, Via Natural or Artificial Opening Endoscopic, Diagnostic (ICD-10-PCS; principal; 2021-03-19 14:00)
PROC: 0DJD8ZZ Inspection of Lower Intestinal Tract, Via Natural or Artificial Opening Endoscopic (ICD-10-PCS; 2021-03-19 14:00)
DX: K57.31 Diverticulosis of large intestine without perforation or abscess with bleeding (principal); D62 Acute posthemorrhagic anemia; N17.9 Acute kidney failure, unspecified; E87.2 Acidosis; I10 Essential (primary) hypertension; E11.621 Type 2 diabetes mellitus with foot ulcer; E11.40 Type 2 diabetes mellitus with diabetic neuropathy, unspecified; E11.65 Type 2 diabetes mellitus with hyperglycemia; L97.519 Non-pressure chronic ulcer of other part of right foot with unspecified severity; K44.9 Diaphragmatic hernia without obstruction or gangrene; M10.9 Gout, unspecified; E87.5 Hyperkalemia; R78.89 Finding of other specified substances, not normally found in blood; Z79.82 Long term (current) use of aspirin; Z79.1 Long term (current) use of non-steroidal anti-inflammatories (NSAID); Z79.4 Long term (current) use of insulin; Z90.710 Acquired absence of both cervix and uterus; Z90.49 Acquired absence of other specified parts of digestive tract; Z89.421 Acquired absence of other right toe(s); Z87.891 Personal history of nicotine dependence; Z88.0 Allergy status to penicillin; Z88.5 Allergy status to narcotic agent
CPT/HCPCS: 99223-AI; 99232-AI; 99233-AI; 99239; C9113; J0692; J1815; J2405; J2704; J7030; P9016; Q9967

== ENCOUNTER → 2021-05-31 | Outpatient (CLI) | payer BC ==
[~2021-05-31] MED LIST changes: +AMOXICILLIN/CLA1 TA1 PO; +INSULIN AS100 UNIT/2 SQ; +INSULIN SYRING1 EA11 SQ; +LEVEMIR100 U/ML SQ; +PRINIVIL20 MG PO; +PROTONIX 40MG T40 MG PO; +ZOFRAN 4MG T4 MG/TAB PO
== END ==
LOC: ZCOL.LAB 16:12
DX: E13.621 Other specified diabetes mellitus with foot ulcer (principal)